=== PATIENT | female | born 1995 | race African-American/Black ===

== ENCOUNTER 2016-10-10 23:55 | Emergency (ER) | payer BC, OTHER ==
[~2016-10-10] VITALS: Ht 162.6 cm; Wt 77.1 kg
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
[2016-10-11 00:57] LABS: ABSOLUTE BASOPHIL COUNT 0 /CUMM (0.0-0.2); ABSOLUTE EOSINOPHIL COUNT 0.1 /CUMM (0.0-0.7); ABSOLUTE GRANULOCYTE CT 2.7 /CUMM (1.4-6.5); ABSOLUTE LYMPH COUNT 3.7 /CUMM (1.2-3.4); ABSOLUTE MONOCYTE COUNT 0.6 /CUMM (0.10-0.60); BASOPHIL % 0.3 % (0.0-2.0); GRANULOCYTE % 37.4 % (42.2-75.2); HEMATOCRIT 36.8 % (37-47); MEAN CORPUSCULAR HGB 25.6 PG (27.0-31.0); MEAN CORPUSCULAR HGB CONC 33.3 G/DL (33.0-37.0); MEAN PLATELET VOLUME 8.2 FL (7.4-10.4); PLATELET COUNT 256 /CUMM (130-400); RBC DISTRIBUTION WIDTH 14.1 % (11.5-14.5); RED BLOOD CELL CT 4.77 /CUMM (4.20-5.40); WHITE BLOOD CELL COUNT 7.2 /CUMM (4.8-10.8)
[2016-10-11] MEDS ORDERED: TRAMADOL HCL50 M1 PO (01:01)
--- NOTE | 2016-10-11 01:48 | ULTRASOUND REPORT ---
EXAMINATION: ULTRASOUND OF THE PELVIS CLINICAL INFORMATION: Acute onset groin pain/lower abdominal pain. Rule out torsion.. COMPARISON: None. TECHNIQUE: Transabdominal and transvaginal pelvic ultrasound. Doppler evaluation with spectral analysis performed. A transvaginal study was performed in addition to the transabdominal study which did not yield an adequate examination of the uterus and ovaries due to superimposed distended gas-filled loops of bowel. FINDINGS: The uterus is normal in size and appearance, measuring 9.4 x 4.9 x 5.8 cm longitudinally, anteroposteriorly and transversely. The endometrial stripe thickness is normal, measuring 1.1 cm in thickness. An IUD is in place, positioned at the mid uterus/lower uterine segment. No focal myometrial mass is seen. The cervical length is normal measuring 4 cm. The ovaries bilaterally are visualized, with the right ovary measuring 4.9 x 3 x 4.6 cm and the left ovary measuring 2.9 x 1.9 x 2.8 cm. There is a heterogeneous lesion in the right ovary measuring 3.8 x 2.8 x 3.6 cm. This has complex internal echoes. There is peripheral vascularity with no central vascularity. This could represent a hemorrhagic cyst. There is normal Doppler flow to both ovaries. No adnexal mass or free fluid collection seen. IMPRESSION: No evidence of active ovarian torsion at this time. Complex lesion in the right ovary which may represent a hemorrhagic cyst. Suggest follow-up ultrasound in 6 or 10 weeks to demonstrate resolution.. IUD in place, positioned in the mid uterus/lower uterine segment.
--- NOTE | 2016-10-11 01:51 | CT SCAN REPORT ---
EXAMINATION: CT ABDOMEN AND PELVIS WITHOUT CONTRAST CLINICAL INFORMATION: Abdominal pain. Evaluate for appendicitis. COMPARISON: Pelvic ultrasound from today TECHNIQUE: Multidetector volumetric imaging was performed from the superior aspect of the liver through the pubic symphysis. Sagittal and coronal reformatted images were obtained on the technologist's workstation. DLP: 347 mGy-cm. FINDINGS: LUNG BASES: The visualized lung bases are unremarkable. LIVER, GALLBLADDER, AND BILIARY TREE: The liver is normal in size, shape, and attenuation. No focal hepatic lesion or biliary ductal dilatation is present. The gallbladder is unremarkable with no evidence of radiopaque gallstones, gallbladder wall thickening, or obvious pericholecystic inflammatory changes. PANCREAS: Unremarkable. SPLEEN: Unremarkable. ADRENAL GLANDS: Unremarkable. KIDNEYS AND URETERS: The kidneys are normal in size, shape, and attenuation. No hydronephrosis, hydroureter, or calculi seen. No perinephric stranding. BLADDER: Unremarkable. GASTROINTESTINAL TRACT: The stomach and small bowel appear unremarkable. No dilated loops of bowel or evidence of obstruction. Normal appendix. No colonic wall thickening or inflammatory change. ABDOMINAL WALL: No significant hernia is appreciated. LYMPH NODES: Normal. VASCULAR: Unremarkable. PELVIC VISCERA: An IUD is in place within the uterus, angulated in position within the endometrial cavity. The right ovarian lesion seen on the recent ultrasound is not well evaluated on this study. Trace free fluid is noted in the region of the pelvis. OSSEOUS STRUCTURES: Unremarkable. IMPRESSION: Normal appendix. Trace free fluid in the pelvis may be associated with the right adnexal lesion seen on the prior ultrasound, suspicious for a hemorrhagic cyst.
[2016-10-11 02:28] VITALS: BP 123/82
== END 2016-10-11 02:30 ==
LOC: ERH 23:55
PROVIDERS: Physician Assistant
DX: N83.201 Unspecified ovarian cyst, right side (principal)
CPT/HCPCS: 74176; 81001; 81025; 87086; 96374; 96375; J1885

== ENCOUNTER 2017-01-03 19:14 | Emergency (ER) | payer BC, OTHER ==
[~2017-01-03] VITALS: Ht 162.6 cm; Wt 77.1 kg
[~2017-01-03 19:14] MED LIST: TRAMADOL HCL50 M1 PO
[2017-01-03 20:12] LABS: ABSOLUTE BASOPHIL COUNT 0 /CUMM (0.0-0.2); ABSOLUTE EOSINOPHIL COUNT 0.2 /CUMM (0.0-0.7); ABSOLUTE GRANULOCYTE CT 4.8 /CUMM (1.4-6.5); ABSOLUTE MONOCYTE COUNT 0.7 /CUMM (0.10-0.60); BASOPHIL % 0.4 % (0.0-2.0); EOSINOPHIL % 2.7 % (0-5); GRANULOCYTE % 54.4 % (42.2-75.2); HEMATOCRIT 38.2 % (37-47); MEAN CORPUSCULAR HGB 26.5 PG (27.0-31.0); MEAN CORPUSCULAR HGB CONC 33.2 G/DL (33.0-37.0); MEAN CORPUSCULAR VOLUME 79.9 FL (81.0-99.0); MEAN PLATELET VOLUME 8.6 FL (7.4-10.4); PLATELET COUNT 270 /CUMM (130-400); RBC DISTRIBUTION WIDTH 13.6 % (11.5-14.5); RED BLOOD CELL CT 4.78 /CUMM (4.20-5.40); WHITE BLOOD CELL COUNT 8.9 /CUMM (4.8-10.8)
--- NOTE | 2017-01-03 20:57 | ED GI/GU/ABDOMINAL COMPLAINT ---
History of Present Illness General Chief Complaint: Abdominal Pain/Flank Pain Stated Complaint: PAIN UPON URINATION AND ABD PAIN Source: patient, family, old records Exam Limitations: no limitations Vital Signs & Intake/Output Vital Signs & Intake/Output Vital Signs Date Time Temp Pulse Resp B/P Pulse O2 O2 Flow FiO2 Ox Delivery Rate 01/03 2113 97.7 79 16 120/76 99 Room Air 01/039 98.6 76 18 124/77 98 Room Air ED Intake and Output 01/04 0000 01/03 1200 Intake Total Output Total Balance Patient 170 lb Weight Allergies Coded Allergies: banana (10/11/16) Reconcile Medications Ciprofloxacin HCl (Cipro) 500 MG TABLET 1 TAB PO BID UTI Ondansetron (Zofran Odt) 4 MG TAB.RAPDIS 1 TAB SL TID PRN NAUSEA Phenazopyridine HCl (Pyridium) 200 MG TABLET 1 TAB PO TID UTI Tramadol HCl 50 MG TABLET 1 TAB PO Q6P PRN PAIN Tramadol HCl 50 MG TABLET 1 TAB PO BIDP PRN PAIN Triage Note: PT TO C/O PAIN WITH URINATION SINCE YESTERSDAY. ALSO C/O PAIN AROUND UMBILICUS TODAY. +NAUSEA, DENIES VOMITTING/DIARRHEA. STATES HAS SLIGHT BLOOD ON TOILET PAPER WHEN SHE WIPES "AND IT'S NOT MY PERIOD" LAST MENSES WAS 12/07. LAST BM WAS THIS AM AND "I HAD TO PUSH HARDER THAN NORMAL" Triage Nurses Notes Reviewed? yes LMP (ages 10-50): 12/07/16 ? N Is pt currently ? No Onset: Abrupt Duration: day(s): (2), constant, waxing and waning Timing: recent history Quality/Severity: aching, cramping Severity Numbers: 5 Location: suprapubic Radiation: no radiation Activities at Onset: none Prior Abdominal Problems: similar symptoms No Modifying Factors: none Associated Symptoms: nausea/vomiting HPI: 21-year-old female presents emergency room complaining of dysuria urgency frequency and suprapubic abdominal pain since yesterday associated nausea. No vomiting no diarrhea. Patient denies history of sexual transmitted disease no vaginal bleeding or discharge. Her last menstrual cycle was on December 07 and normal. Patient denies any diarrhea constipation chest pain fever chills. She is not taken anything for her symptoms were sought care until today. No modifying factors or radiation of pain (CRISTHIAN BAXTER) Past History Travel History Traveled to [place] past 21 day No Medical History Any Pertinent Medical History? 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 No (CRISTHIAN BAXTER) Review of Systems Review of Systems Constitutional: Reports: see HPI. All Other Systems: Reviewed and Negative Comments Review of systems: See HPI, All other systems negative. Constitutional, no chills no fever, no malaise HEENT: No visual changes no sore throat no congestion Cardiovascular: No chest pain , no palpitation Skin, no rashes, no change in skin Respiratory: No dyspnea no cough no sputum GI: nausea no vomiting, no diarrhea : dysuria Muscle skeletal: No joint pain, no back pain, no neck pain, Neurologic: No numbness no headache Psych: No stress Heme/endocrine: No bruising no bleeding Immunology: No lymphadenopathy (CRISTHIAN BAXTER) Physical Exam Physical Exam General Appearance: well developed/nourished, alert, awake Gastrointestinal: normal bowel sounds, soft Comments: Well-developed well-nourished person in no acute distress HEENT: Normal EENT exam; PERRL, EOMI, . HEAD is atraumatic. moist mucous membranes. Neck: Supple, normal range of motion Back: Nontender, no CVA tenderness. Full range of motion Cardiovascular: Regular rate and rhythms no murmurs Respiratory: No respiratory distress. Patient speaking in full complete sentences. Breath sounds clear to auscultation bilaterally: NO W/R/R Abdomen: Soft, nontender nondistended, no appreciable organomegaly. Normal bowel sounds. No rebound/guarding, no right lower quadrant tenderness negative Rovsing 's negative after sign Extremity: No edema, full range of motion of extremities Neuro: Alert oriented x3, motor sensory normal,There were no obvious focal neurologic abnormalities. Skin: No appreciable rash on exposed skin, skin is warm and dry. Psych: Mood and affect is normal, memory and judgment is normal. Core Measures ACS in differential dx? No Severe Sepsis Present: No Septic Shock Present: No (PETER LANIER,CRISTHIAN) Progress Differential Diagnosis: appendicitis, biliary colic, bowel obstruction, colon cancer, cholecystitis, diverticulitis, ectopic , gastritis, inflamm bowel dis, kidney stone, ovarian cyst, ovarian torsion, PID/cervicitis, peptic ulcer, PUD/GERD, perforated viscous, SBO, threatened AB, UTI/pyelo Plan of Care: Orders Procedure Date/time Status COMPREHENSIVE METABOLIC PANEL 01/03 1942 Complete CBC WITHOUT DIFFERENTIAL 01/03 1942 Complete URINE 01/04 1924 Complete URINALYSIS 01/04 1924 Complete Laboratory Tests 01/03/171958: Anion Gap 12, Estimated GFR > 60, BUN/Creatinine Ratio 15.0, Glucose 97, Calcium 9.4, Total Bilirubin 0.4, AST 19, ALT 26, Alkaline Phosphatase 69, Total Protein 7.9, Albumin 4.2, Globulin 3.7, Albumin/Globulin Ratio 1.1, CBC w Diff NO MAN DIFF REQ, RBC 4.78, MCV 79.9 L, MCH 26.5 L, RDW 13.6, MPV 8.6, Gran % 54.4, Lymphocytes % 34.3, Monocytes % 8.2, Eosinophils % 2.7, Basophils % 0.4, Absolute Granulocytes 4.8, Absolute Lymphocytes 3.0, Absolute Monocytes 0.7 H, Absolute Eosinophils 0.2, Absolute Basophils 0, PUBS MCHC 33.2 01/03/171950: Urinalysis LIGHT H, Urine Color YEL, Urine Clarity CLDY H, Urine pH 6.0, Ur Specific [place] >= 1.030, Urine Protein >=300 H, Urine Ketones NEG, Urine Nitrite POS H, Urine Bilirubin NEG, Urine Urobilinogen 0.2, Ur Leukocyte Esterase TRACE H, Ur Microscopic SEDIMENT EXAMINED, Urine RBC >75 H, Urine WBC > 75 H, Ur Epithelial Cells MOD H, Urine Bacteria MANY H, Urine Mucus FEW, Urine Hemoglobin LARGE H, Urine Glucose NEG, Urine Test NEGATIVE Labs ordered I discussed with the patient at length all of their results. Patient clinically appears well labs are otherwise unremarkable other than UA, there is no right lower quadrant tenderness do not believe the patient prior CT, ultrasound is unavailable at this time however she is in agreement with plan I had an extensive conversation regarding need for close follow up with their primary care physician this week as well as return precautions. I answered all of their questions, they feel comfortable with the plan and follow-up care. I discussed the medications that they will receive with the patient. I gave them signs and symptoms that could indicate an adverse reaction. I have advised them to limit their activities until they can see how they respond to the medication. (CRISTHIAN BAXTER) Initial ED EKG: none (CRISTHIAN BAXTER) Departure Departure Time of Disposition: 2106 Disposition: HOME OR SELF CARE Condition: Stable Clinical Impression Primary Impression: UTI (urinary tract infection) Referrals: PATIENT HAS NO PRIMARY CARE DR (PCP/Family) Additional Instructions: Follow-up with your primary care physician. Cipro and Pyridium as discussed Zofran if needed for nausea tramadol for breakthrough pain. Return anytime sooner with any concerns Departure Forms: Customer Survey General Discharge Information Prescriptions: Current Visit Scripts Ciprofloxacin HCl (Cipro) 1 TAB PO BID #14 TAB Phenazopyridine HCl (Pyridium) 1 TAB PO TID #6 TAB Ondansetron (Zofran Odt) 1 TAB SL TID PRN NAUSEA #10 TAB Tramadol HCl 1 TAB PO Q6P PRN PAIN #10 TAB (CRISTHIAN BAXTER) PA/QUARRY SUPERVISOR OPEN PIT Co-Sign Statement Statement: ED Attending supervision documentation- [] I saw and evaluated the patient. I have also reviewed all the pertinent lab results and diagnostic results. I agree with the findings and the plan of care as documented in the PA's/QUARRY SUPERVISOR OPEN PIT's documentation. [X] I have reviewed the ED Record and agree with the PA's/QUARRY SUPERVISOR OPEN PIT's documentation. [] Additions or exceptions (if any) to the PAs/QUARRY SUPERVISOR OPEN PIT's note and plan are summarized below: [] (TRAVON MASON,CHRISTIE)
[2017-01-03] MEDS ORDERED: CIPRO500 M1 PO (21:08)
[2017-01-03] MEDS ORDERED: PYRIDIUM200 M1 PO (21:08)
[2017-01-03] MEDS ORDERED: ZOFRAN ODT4 M1 SL (21:08)
[2017-01-03] MEDS ORDERED: TRAMADOL HCL50 M1 PO (21:08)
[2017-01-03 21:13] VITALS: BP 120/76
== END 2017-01-03 21:14 ==
LOC: ERH 19:14
PROVIDERS: Emergency Medicine
DX: N39.0 Urinary tract infection, site not specified (principal)
CPT/HCPCS: 81001; 81025